=== PATIENT | male | born 1995 | race Caucasian/White ===

== ENCOUNTER 2018-02-08 21:20 | Emergency (ER) | payer OTHER ==
[~2018-02-08] VITALS: Ht 190.5 cm; Wt 83.9 kg
[2018-02-08 21:27] VITALS: BP 144/79
--- NOTE | 2018-02-08 22:21 | ED GENERAL ADULT ---
History of Present Illness General Chief Complaint: General Adult Stated Complaint: RABIES EXPOSURE Source: patient, family Exam Limitations: no limitations Vital Signs & Intake/Output Vital Signs & Intake/Output Vital Signs Date Time Temp Pulse Resp B/P B/P Pulse O2 O2 Flow FiO2 Mean Ox Delivery Rate 02/08 2127 98.6 90 18 144/79 96 Room Air Allergies Coded Allergies: No Known Allergies (02/08/18) Triage Note: PT TO TRIAGE S/P DOG GOT BIT BY RACOON THURSDAY. ALL MEMBERS OF FAMILY HAVE TOUCHED DOG. ?RABIES EXPOSURE PER PT. DENIES ANY COMPLAINTS. Triage Nurses Notes Reviewed? yes Onset: Abrupt Duration: day(s): (3) Timing: single episode today Injury Environment: home Severity: mild No Modifying Factors: none HPI: 22-year-old male with no medical history presents for evaluation of possible rabies exposure. Patient reports that his dog was bitten in the right ear 3 days ago by a raccoon. The raccoon scurried off and they were not able to quarantine or capture. The dog had a wound on his ear that the patient and his family cared for and subsequently got some of the dogs blood on the hands. There is no exposure to mucous membranes or eyes. The dog never bit any of the family members. The dog is a family pet was immediately taken to the vet. The dog is up-to-date on all vaccines and received a booster shot. The dog has been behaving normally since and is quarantined now. Patient's safety and his family are feeling well and have no concerns other than a possible need for a rabies vaccine. (Bhupinder Judd) Past History Travel History Traveled to [place] past 21 day No Medical History Any Pertinent Medical History? see below for history Neurological: NONE EENT: NONE Cardiovascular: NONE Respiratory: NONE Gastrointestinal: NONE Hepatic: NONE Renal: NONE Musculoskeletal: NONE Psychiatric: NONE Endocrine: NONE Blood Disorders: NONE Cancer(s): NONE [employer]ERSON/Reproductive: NONE Surgical History Surgical History: non-contributory Psychosocial History What is your primary language Japanese Tobacco Use: Never used Family History Hx Contributory? No (Bhupinder Judd) Review of Systems Review of Systems Constitutional: Reports: no symptoms. EENTM: Reports: no symptoms. Respiratory: Reports: no symptoms. Cardiovascular: Reports: no symptoms. GI: Reports: no symptoms. Genitourinary: Reports: no symptoms. Musculoskeletal: Reports: no symptoms. Skin: Reports: no symptoms. Neurological/Psychological: Reports: no symptoms. Hematologic/Endocrine: Reports: no symptoms. Immunologic/Allergic: Reports: no symptoms. All Other Systems: Reviewed and Negative (Bhupinder Judd) Physical Exam Physical Exam General Appearance: well developed/nourished, no apparent distress, alert, awake Head: atraumatic, normal appearance Eyes: Bilateral: normal appearance, EOMI. Ears, Nose, Throat: hearing grossly normal Neck: normal inspection, supple, full range of motion Respiratory: no respiratory distress Back: normal inspection, normal range of motion Extremities: normal inspection, normal range of motion, no edema Neurologic/Psych: no motor/sensory deficits, awake, alert, oriented x 3, normal gait Skin: intact, normal color, warm/dry Core Measures ACS in differential dx? No CVA/TIA Diagnosis: No Sepsis Present: No Sepsis Focused Exam Completed? No (Bhupinder Judd) Progress Differential Diagnoses I considered the following diagnoses in my evaluation of the patient: [Rabies exposure] Plan of Care: Patient seen and evaluated. He was never bitten by the dog. There was never any contact with mucous membranes or eyes. He does not meet criteria for immunoglobulin or vaccine. Educated patient about need for rabies vaccine and how he currently does not he criteria. Advised to need to keep the animal quarantined FOR 2 WEEKS. Monitor for signs and symptoms rabies discussed what these are. Discussed return precautions patient agrees. Case discussed with Dr. Diana HE agrees. Initial ED EKG: none (Bhupinder Judd) Departure Departure Disposition: HOME OR SELF CARE Condition: Stable Clinical Impression Primary Impression: Deficient knowledge of rabies contact Referrals: Joshua Simpson MD (PCP/Family) Additional Instructions: Continued acquiring senior dog for at least 2 weeks. If the ANIMAL shows any signs or symptoms of suspected rabies return immediately. Departure Forms: Customer Survey General Discharge Information (Bhupinder Judd) PA/[employer]ARVEST [employer] Co-Sign Statement Statement: ED Attending supervision documentation- [] I saw and evaluated the patient. I have also reviewed all the pertinent lab results and diagnostic results. I agree with the findings and the plan of care as documented in the PA's/HARVEST [employer]OR's documentation. [X] I have reviewed the ED Record and agree with the PA's/HARVEST CONTRACTOR's documentation. [] Additions or exceptions (if any) to the PAs/HARVEST CONTRACTOR's note and plan are summarized below: [] (Adalgisa HOLM,Jerome Bonds) Critical Care Note Critical Care Note Critical Care Time: non-applicable (Gustavo FREDERICK,Bhupinder)
== END 2018-02-08 22:29 ==
LOC: ERH 21:20
DX: Z71.1 Person with feared health complaint in whom no diagnosis is made (principal)
CPT/HCPCS: 99281